=== PATIENT | male | born 1970 | race African-American/Black ===

== ENCOUNTER 2020-03-04 22:27 | Inpatient (IN) ==
[2020-03-05] MEDS ORDERED: Naloxone 0.4 MG/ML INJ IVP PRN (03:22)
[2020-03-05] MEDS ORDERED: *HR* Heparin 5,000 UNIT/ML VIAL IVP ONE (04:02)
[2020-03-05] MEDS ORDERED: *HR* Heparin 5,000 UNIT/ML VIAL IVP PRN ×2 (04:02)
[2020-03-05] MEDS ORDERED: Heparin 25,000 UNIT/250 ML D5W 25,000 UNIT/250 ML IV.SOLN IVC SCH (04:15)
[2020-03-05 05:00] LABS: Basophils # 0.1 K/mcL (0.0-0.2); Basophils % 0.6 %; Eosinophils # 0.4 K/mcL (0.0-0.6); Eosinophils % 3.9 %; Hematocrit 43.5 % (37.5-50.1); Hemoglobin 15.4 g/dL (12.9-16.9); Immature Granulocytes % 0.1 % (0-4); Lymphocytes # 3.8 K/mcL (0.6-4.6); Lymphocytes % 40.9 %; Mean Corpuscular HGB Conc 35.4 g/dL (31.6-35.5); Mean Corpuscular Hemoglobin 30.7 pg (28.0-33.3); Mean Corpuscular Volume 86.7 fL (83.0-100.0); Mean Platelet Volume 9.4 fL (9.4-12.4); Monocytes # 0.8 K/mcL (0.0-1.3); Neutrophils # 4.2 K/mcL (1.6-8.9); Platelet Count 293 K/mcL (140-400); Red Blood Count 5.02 M/mcL (4.19-5.50); Red Cell Distribution Width 12.8 % (11.5-14.5); Segmented Neutrophils % 45.5 %; White Blood Count 9.2 K/mcL (4.3-11.1)
[2020-03-05 05:04] LABS: Heparin anti-factor XA UFH 0.31 IU/mL (0.30-0.70)
[2020-03-05 05:05] LABS: INR 1.1
[2020-03-05 05:23] LABS: BUN/Creatinine Ratio 16 (6-26); Blood Urea Nitrogen 14 mg/dL (6-20); Carbon Dioxide 27 mEq/L (23-29); Chloride 103 mEq/L (98-107); Glucose 96 mg/dL (70-105); Osmolality,Calculated 286 (280-300); Potassium 3.9 mEq/L (3.5-5.1); Sodium 138 mEq/L (136-145); eGFR For African Americans > 60 (> 60); eGFR For Non-African Americans > 60 (> 60)
[2020-03-05 05:33] LABS: Troponin I 0.32 ng/mL (< 0.04)
[2020-03-05 08:15] LABS: Alanine Aminotransferase 27 Units/L (7-52); Albumin 4.1 g/dL (3.5-5.7); Albumin/Globulin Ratio 1.5 (1.1-2.2); Alkaline Phosphatase 81 Units/L (34-104); Aspartate Amino Transferase 20 Units/L (13-39); Bilirubin,Direct 0.2 mg/dL (0.0-0.2); Bilirubin,Indirect 0.8 mg/dL (0.0-1.0); Chol/HDL Ratio 4.6 (0-4.9); Cholesterol 187 mg/dL (< 200); Globulin 2.7 g/dL (2.4-3.5); HDL Cholesterol 41 mg/dL (40-59); LDL Cholesterol,Calculated 135 mg/dL (0-99); Total Protein 6.8 g/dL (6.4-8.9); Triglycerides 54 mg/dL (< 150)
[2020-03-05] MEDS: Aspirin Enteric Coated 81 MG Tablet PO SCH (08:21)
[2020-03-05] MEDS: amLODIPine 5 MG TABLET PO SCH (08:22)
[2020-03-05] MEDS ORDERED: 0.9 % Sodium Chloride 1,000 ML ONE ×2 (09:03→09:04)
[2020-03-05] MEDS ORDERED: Nitroglycerin 1,000 MCG/10 ML VIAL IV ONE (09:04)
[2020-03-05] MEDS ORDERED: *HR* Heparin 10,000 UNIT/10 ML VIAL ONE (09:04)
[2020-03-05] MEDS ORDERED: *HR* Midazolam HCl 2 MG/2 ML VIAL ONE (09:15)
[2020-03-05] MEDS ORDERED: Nitroglycerin 0.4 MG TAB.SUBL SL PRN (09:34)
[2020-03-05] MEDS ORDERED: *HR* Ticagrelor 90 MG TABLET ONE (09:52)
[2020-03-05] MEDS ORDERED: Acetaminophen 325 MG TABLET PO PRN (10:00)
[2020-03-05] MEDS: *HR* Ticagrelor 90 MG TABLET PO SCH (20:33)
[2020-03-06 06:01] LABS: Basophils # 0.1 K/mcL (0.0-0.2); Basophils % 0.5 %; Eosinophils # 0.4 K/mcL (0.0-0.6); Eosinophils % 3.9 %; Hematocrit 44.5 % (37.5-50.1); Hemoglobin 14.9 g/dL (12.9-16.9); Immature Granulocytes % 0.2 % (0-4); Lymphocytes # 2.4 K/mcL (0.6-4.6); Lymphocytes % 25.9 %; Mean Corpuscular HGB Conc 33.5 g/dL (31.6-35.5); Mean Corpuscular Hemoglobin 29.4 pg (28.0-33.3); Mean Corpuscular Volume 87.8 fL (83.0-100.0); Mean Platelet Volume 9.8 fL (9.4-12.4); Monocytes # 0.9 K/mcL (0.0-1.3); Monocytes % 10.1 %; Neutrophils # 5.5 K/mcL (1.6-8.9); Platelet Count 288 K/mcL (140-400); Red Blood Count 5.07 M/mcL (4.19-5.50); Red Cell Distribution Width 12.5 % (11.5-14.5); Segmented Neutrophils % 59.4 %; White Blood Count 9.3 K/mcL (4.3-11.1)
[2020-03-06 06:18] LABS: BUN/Creatinine Ratio 19 (6-26); Blood Urea Nitrogen 18 mg/dL (6-20); Calcium 9.1 mg/dL (8.6-10.3); Carbon Dioxide 26 mEq/L (23-29); Chloride 107 mEq/L (98-107); Glucose 154 mg/dL (70-105); Osmolality,Calculated 293 (280-300); Potassium 3.5 mEq/L (3.5-5.1); Sodium 139 mEq/L (136-145); eGFR For African Americans > 60 (> 60); eGFR For Non-African Americans > 60 (> 60)
[2020-03-06] MEDS: Aspirin Enteric Coated 81 MG Tablet PO SCH (08:16)
[2020-03-06] MEDS: *HR* Ticagrelor 90 MG TABLET PO SCH (08:16)
[2020-03-06] MEDS: amLODIPine 5 MG TABLET PO SCH (08:16)
[2020-03-06] MEDS ORDERED: lisinopriL 5 MG TABLET PO SCH (09:00)
[2020-03-06 11:34] VITALS: BP 151/92
== END 2020-03-06 12:50 | disposition home or self-care (01) | DRG 247 ==
LOC: 2NNU → SUATTDRO 03-05 01:48
PROVIDERS: ADMIT Internal Medicine; ATTEND Internal Medicine